=== PATIENT | female | born 1990 | race Asian ===

== ENCOUNTER 2017-08-18 15:22 | Emergency (ER) | payer SELFPAY ==
[2017-08-18 18:19] VITALS: BP 93/47
--- NOTE | 2017-08-19 11:19 | ED ---
Medical Screening - HPI Summary HPI Summary: Patient presents to the ED with request for test. Patient does not speak Turkmen and [employer] Talk training mgr for zambian used during interaction. She denies any pain, complaints, health history or medication use. She is not seen by a OBGYN and this is her first . She states her LMP was 18 months ago and on clarification, she continues to state 18 months, so possibly language issue or other pathology of why no menses. HCG obtained. VS stable. - History of Current Complaint Chief Complaint: EDGeneral Stated Complaint: NEEDS TEST Time Seen by Provider: 08/18/17 16:55 Onset/Duration: Started Weeks Ago PMH/Surg Hx/FS Hx/Imm Hx Previously Healthy: Yes - Immunization History Hx Pertussis Vaccination: No Immunizations Up to Date: Unable to Obtain/Confirm Infectious Disease History: No Infectious Disease History: Denies: Traveled Outside the [place] in Last 30 Days - Social History Occupation: Unemployed Lives: With Family Alcohol Use: None Hx Substance Use: No Substance Use Type: Reports: None Hx Tobacco Use: No Smoking Status (MU): Unknown if Ever Smoked Review of Systems Constitutional: Negative Negative: Fever, Chills, Fatigue Eyes: Negative Cardiovascular: Negative Respiratory: Negative Genitourinary: Negative Positive: no symptoms reported, see HPI Skin: Negative All Other Systems Reviewed And Are Negative: Yes Physical Exam Triage Information Reviewed: Yes Vital Signs On Initial Exam: Initial Vitals Temp Pulse Resp BP Pulse Ox 98.1 F 79 18 89/47 100 08/18/17 15:51 08/18/17 15:51 08/18/17 15:51 08/18/17 15:51 08/18/17 15:51 Vital Signs Reviewed: Yes Appearance: Positive: Well-Appearing, Well-Nourished Skin: Positive: Warm, Skin Color Reflects Adequate Perfusion Head/Face: Positive: Normal Head/Face Inspection Eyes: Positive: EOMI, RAHEEM, Conjunctiva Clear Neck: Positive: Supple, No Lymphadenopathy Respiratory/Lung Sounds: Positive: Clear to Auscultation, Breath Sounds Present Cardiovascular: Positive: RRR, Pulses are Symmetrical in both Upper and Lower Extremities Musculoskeletal: Positive: Strength/ROM Intact Neurological: Positive: Speech Normal Psychiatric: Positive: Normal, Affect/Mood Appropriate Diagnostics - Vital Signs Vital Signs Temp Pulse Resp BP Pulse Ox 08/18/17 18:18 98.4 F 65 16 93/47 100 08/18/17 15:51 98.1 F 79 18 89/47 100 - Laboratory Lab Results: Lab Results 08/18/17 Range/Units 17:09 Beta HCG, Quant 66311.00 mIU/mL Lab Statement: Any lab studies that have been ordered have been reviewed, and results considered in the medical decision making process. Course/Dx - Course Course Of Treatment: HCG obtained. Patient is confirmed . I have advised she see OBGYN and given referral. Discussed care during and vitamins. Patient agrees to this and agrees to follow up with OBGYN. - Diagnoses Provider Diagnoses: test positive Discharge - Discharge Plan Condition: Stable Disposition: HOME Patient Education Materials: (ED) Referrals: Dereck Suarez MD [Medical Doctor] - No Primary Care Phys,NOPCP [Primary Care Provider] - Additional Instructions: Please follow up with Dr. Suarez Call for appt tomorrow
== END 2017-08-18 18:18 | disposition home or self-care (01) ==
LOC: ED 15:22
DX: Z32.01 Encounter for pregnancy test, result positive (principal)
CPT/HCPCS: 36415; 84702; 99282